=== PATIENT | male | born 1985 | race Caucasian/White ===

== ENCOUNTER → 2018-03-08 | Outpatient (CLI) | payer OTHER ==
[2018-03-07 20:16] VITALS: BP 151/105
[~2018-03-08] MED LIST: PREVACID15 M1
== END ==
LOC: RAD 07:23
DX: K76.0 Fatty (change of) liver, not elsewhere classified (principal); R10.11 Right upper quadrant pain; R74.8 Abnormal levels of other serum enzymes

== ENCOUNTER → 2018-03-15 | Outpatient (CLI) | payer OTHER ==
[2018-03-07 20:16] VITALS: BP 151/105
[2018-03-15 09:37] LABS: URINE APPEARANCE CLEAR; URINE BILIRUBIN NEGATIVE (NEGATIVE); URINE BLOOD 50 ery/uL (NEGATIVE); URINE COLOR YELLOW; URINE GLUCOSE NEGATIVE (NEGATIVE); URINE KETONE NEGATIVE (NEGATIVE); URINE LEUKOCYTE ESTERASE NEGATIVE (NEGATIVE); URINE MUCUS PRESENT (NOT PRESENT); URINE NITRATE NEGATIVE (NEGATIVE); URINE PROTEIN(semi-quant) 1+ mg/dL (NEGATIVE); URINE UROBILINOGEN NORMAL (NORMAL)
== END ==
LOC: LAB 09:29
PROVIDERS: Family Medicine
DX: K76.0 Fatty (change of) liver, not elsewhere classified (principal); R31.9 Hematuria, unspecified

== ENCOUNTER → 2019-04-06 | Outpatient (CLI) | payer OTHER ==
[2018-03-07 20:16] VITALS: BP 151/105
[2019-04-06 11:21] LABS: EOS # 0.2 (0.04-0.40); EOS % 3.4 % (0.0-4.0); HEMATOCRIT 47.8 % (42.0-52.0); HEMOGLOBIN 16.1 g/dL (13.5-18.0); LYMPH# 1.5 (1.50-4.00); MEAN CELL VOLUME 96 fl (78-100); MEAN CORPUSCULAR HEMOGLOBIN 32 pg (27-31); MEAN CORPUSCULAR HGB CONC 34 g/dL (33-37); MEAN PLATELET VOLUME 9.3 fl (7.4-10.4); MONO # 0.4 (0.20-0.80); NEU # 3.5 (1.40-6.50); PLATELET COUNT 272 K/mm3 (130-400); RED BLOOD COUNT 4.97 M/mm3 (4.20-5.60); RED CELL DISTRIBUTION WIDTH 12.8 % (11.5-14.5); WHITE BLOOD COUNT 5.6 K/mm3 (4.8-10.8)
[2019-04-06 11:30] LABS: ALBUMIN 4.7 g/dL (3.5-5.0); POTASSIUM 4.1 mmol/L (3.5-5.1)
[2019-04-06 11:31] LABS: CALCIUM 9.7 mg/dL (8.3-10.5)
[2019-04-06 11:33] LABS: TOTAL PROTEIN 7.8 g/dL (6.4-8.3)
[2019-04-06 11:34] LABS: TOTAL BILIRUBIN 0.4 mg/dL (0.2-1.2)
== END ==
LOC: LAB 11:09
PROVIDERS: Family Medicine
DX: Z00.00 Encounter for general adult medical examination without abnormal findings (principal); E78.5 Hyperlipidemia, unspecified

== ENCOUNTER 2019-05-01 13:18 | Emergency (ER) | payer OTHER ==
[2019-05-01] MEDS ORDERED: SERTRALINE HYDR25 MG PO (13:31)
[2019-05-01 13:59] LABS: HEMATOCRIT 47.3 % (42.0-52.0); HEMOGLOBIN 16.9 g/dL (13.5-18.0); MEAN CELL VOLUME 91 fl (78-100); MEAN CORPUSCULAR HEMOGLOBIN 32 pg (27-31); MEAN CORPUSCULAR HGB CONC 36 g/dL (33-37); MEAN PLATELET VOLUME 9.2 fl (7.4-10.4); PLATELET COUNT 205 K/mm3 (130-400); RED BLOOD COUNT 5.22 M/mm3 (4.20-5.60); RED CELL DISTRIBUTION WIDTH 12.2 % (11.5-14.5); WHITE BLOOD COUNT 12.1 K/mm3 (4.8-10.8)
[2019-05-01 14:06] LABS: ALBUMIN 3.8 g/dL (3.5-5.0); POTASSIUM 3.4 mmol/L (3.5-5.1)
[2019-05-01 14:07] LABS: URINE APPEARANCE HAZY; URINE BILIRUBIN NEGATIVE (NEGATIVE); URINE BLOOD 250 ery/uL (NEGATIVE); URINE COLOR BLOODY; URINE GLUCOSE NEGATIVE (NEGATIVE); URINE KETONE NEGATIVE (NEGATIVE); URINE LEUKOCYTE ESTERASE NEGATIVE (NEGATIVE); URINE NITRATE NEGATIVE (NEGATIVE); URINE PROTEIN(semi-quant) 2+ mg/dL (NEGATIVE); URINE UROBILINOGEN NORMAL (NORMAL); URINE WBC 0-1 /hpf (0-3)
[2019-05-01 14:07] LABS: CALCIUM 8.7 mg/dL (8.3-10.5)
[2019-05-01 14:08] LABS: TOTAL PROTEIN 7.6 g/dL (6.4-8.3)
[2019-05-01 14:10] LABS: TOTAL BILIRUBIN 1.5 mg/dL (0.2-1.2)
[2019-05-01 14:17] LABS: LYMPHOCYTE 9 % (20-51); MONOCYTE 4 % (3-10); NEUTROPHILS 87 % (42-75)
[2019-05-01 14:44] VITALS: BP 135/78
== END 2019-05-01 14:40 | disposition other institution (70) ==
LOC: ED 13:18
PROVIDERS: Nurse Practitioner Family
DX: K85.90 Acute pancreatitis without necrosis or infection, unspecified (principal); E87.1 Hypo-osmolality and hyponatremia
CPT/HCPCS: J1885; J2405; J7030

== ENCOUNTER 2019-05-01 14:31 | Inpatient (IN) | payer OTHER ==
[~2019-05-01] VITALS: Ht 180.3 cm; Wt 85.0 kg
[~2019-05-01 14:31] MED LIST changes: +SERTRALINE HYDR25 MG PO
[2019-05-01 14:44] VITALS: BP 135/87
[2019-05-01 17:19] VITALS: BP 116/77
[2019-05-01 18:20] VITALS: BP 116/77
--- NOTE | 2019-05-01 19:10 | NUR ---
Report received from Vanessa WASHINGTON. Resting supine in bed in a relaxed state. A/O x4. IVF infusing LR at 200 ML/HR. Site patent to LAC. No signs and Sx of withdrawl. States no pain at rest. 4/10 with movement. Denies need for analgesic. Assessment completed. and children in to visit.
[2019-05-01 20:00] VITALS: BP 132/80
--- NOTE | 2019-05-01 20:45 | NUR ---
Up to BR. Back to bed. No pain prior to going to BR. Has coughing spell. Pain level 7/10. Morphine 4 MG IV given at this time. Takes PO Zoloft with sip of H20. IV Protonix given.
[2019-05-01 22:00] VITALS: BP 129/80
[2019-05-02] VITALS (8 sets, daily range): BP systolic 117–142; BP diastolic 72–90
--- NOTE | 2019-05-02 00:38 | NUR ---
Calls for analgesic pain 09/15. Toradol 15 MG given at this time IV. Denies anxiousness, tremors. States he has gotten "a little bit of sleep".
--- NOTE | 2019-05-02 02:35 | NUR ---
New bag of IVF hung. LR at 200 ML/HR. Site patent to LAC. Resting quietly. Denies need for analgesic.
--- NOTE | 2019-05-02 04:04 | NUR ---
Resting well with eyes closed. No signs of pain or distress. IVF infusing LR at 200 ML/HR. V/S deferred at this time to allow patient to sleep. Have been stable Q 2 hours.
--- NOTE | 2019-05-02 04:53 | NUR ---
Rings call light. Asks for extra blanket. Up ad-el to void. Denies need for analgesic, no signs of withdrawl.
--- NOTE | 2019-05-02 07:18 | NUR ---
Report to Carol WASHINGTON.
[2019-05-02 07:41] LABS: HEMATOCRIT 40.6 % (42.0-52.0); MEAN CELL VOLUME 94 fl (78-100); MEAN CORPUSCULAR HEMOGLOBIN 32 pg (27-31); MEAN CORPUSCULAR HGB CONC 35 g/dL (33-37); MEAN PLATELET VOLUME 9.2 fl (7.4-10.4); PLATELET COUNT 150 K/mm3 (130-400); RED BLOOD COUNT 4.32 M/mm3 (4.20-5.60); RED CELL DISTRIBUTION WIDTH 12.8 % (11.5-14.5)
[2019-05-02 08:32] LABS: ALBUMIN 3.1 g/dL (3.5-5.0)
[2019-05-02 08:33] LABS: CALCIUM 8.8 mg/dL (8.3-10.5)
[2019-05-02 08:34] LABS: TOTAL PROTEIN 6.1 g/dL (6.4-8.3)
[2019-05-02 08:36] LABS: TOTAL BILIRUBIN 1.3 mg/dL (0.2-1.2)
[2019-05-02 08:41] LABS: LYMPHOCYTE 10 % (20-51); MONOCYTE 1 % (3-10); NEUTROPHILS 88 % (42-75)
[2019-05-02 08:42] LABS: LIPASE 191 U/L (8-78)
--- NOTE | 2019-05-02 13:02 | NUR ---
Elizabeth Barger APRN at bedside.
--- NOTE | 2019-05-02 19:00 | NUR ---
REPORT PROVIDED BY PADMINI AMATO.
--- NOTE | 2019-05-02 20:10 | NUR ---
PATIENT SITTING IN CHAIR. PAIN AT A 3/10 IN R ABD AND LOWER BACK BILATERALLY. REQUEST TORADOL FOR PAIN AND PROVIDED. PATIENT REPORTS 2 BM OF DIARRHEA TODAY. ABDOMEN FIRM BUT AUDIBLE IN ALL FOUR. PATIENT IS TACHYCARDIC BUT NO SWEATING AND NO TREMORS. LACTATED RINGER RUNNING AT 75MLS/HR.
[2019-05-03] VITALS (7 sets, daily range): BP systolic 127–150; BP diastolic 78–100
--- NOTE | 2019-05-03 02:00 | NUR ---
JUST UNDER 500ML OF LR REMAINING IN BAG. PATIENT ASLEEP. RR 16. LR BAG TO BE CHANGED CLOSER TO TIME OF COMPLETION OF REMAINING MLS. RATE OF INFUSION AT 75MLS/HR.
--- NOTE | 2019-05-03 07:00 | NUR ---
REPORT OFF TO PADMINI LANIER.
--- NOTE | 2019-05-03 07:25 | NUR ---
REPORT RECEIVED FROM CARMINA WASHINGTON.
[2019-05-03 07:33] LABS: EOS # 0.2 (0.04-0.40); EOS % 3.4 % (0.0-4.0); HEMATOCRIT 40.8 % (42.0-52.0); HEMOGLOBIN 13.4 g/dL (13.5-18.0); LYMPH# 0.9 (1.50-4.00); MEAN CELL VOLUME 97 fl (78-100); MEAN CORPUSCULAR HEMOGLOBIN 32 pg (27-31); MEAN CORPUSCULAR HGB CONC 33 g/dL (33-37); MEAN PLATELET VOLUME 9.4 fl (7.4-10.4); MONO # 0.6 (0.20-0.80); NEU # 4.2 (1.40-6.50); PLATELET COUNT 164 K/mm3 (130-400); RED BLOOD COUNT 4.22 M/mm3 (4.20-5.60); RED CELL DISTRIBUTION WIDTH 13.3 % (11.5-14.5); WHITE BLOOD COUNT 5.9 K/mm3 (4.8-10.8)
[2019-05-03 07:44] LABS: ALBUMIN 3.3 g/dL (3.5-5.0)
[2019-05-03 07:45] LABS: POTASSIUM 3.8 mmol/L (3.5-5.1)
[2019-05-03 07:46] LABS: CALCIUM 9.3 mg/dL (8.3-10.5)
[2019-05-03 07:47] LABS: TOTAL PROTEIN 6.7 g/dL (6.4-8.3)
[2019-05-03 07:49] LABS: TOTAL BILIRUBIN 1.2 mg/dL (0.2-1.2)
--- NOTE | 2019-05-03 07:50 | NUR ---
RESTING IN BED ON LT SIDE. AWAKENS EASILY. LR INFUSING PER ORDERS TO INTACT LT AC SITE. RATES PAIN 1/10 TO RUQ AND MIDLINE ABD, JUST BELOW UMBILICUS. TENDERNESS TO RUQ. ABD DISTENDED. BOWEL SOUNDS PRESENT X4 QUADS. PAIN IS BETTER IF HE FINDS THE RIGHT POSITION. DENIES NAUSEA. EXPERIENCES A "BUBBLING" SENSATION TO ABD AFTER PO INTAKE. DISCUSS POSSIBILITY OF ADVANCING DIET TODAY, WHICH PATIENT WOULD APPRECIATE. NO TREMOR NOTED DURING ASSESSMENT.
--- NOTE | 2019-05-03 09:00 | NUR ---
OFFER PRN TORADOL FOR PAIN CONTROL. PATIENT MAINTAINS PAIN IS TOLERABLE. HE WOULD LIKE TO SEE HOW HE FAIRS WITHOUT PAIN MEDICATION. DISCUSS BRAT DIET WITH PATIENT. ENCOURAGE HIM TO USE CALL LIGHT IF HE NEEDS PAIN MEDICATION OR A SNACK BEFORE LUNCH.
--- NOTE | 2019-05-03 11:18 | NUR ---
IV FLUIDS PAUSED AT THIS TIME SO PATIENT CAN SHOWER.
--- NOTE | 2019-05-03 11:58 | NUR ---
SITTING IN CHAIR EATING LUNCH. IV FLUIDS RECONNECTED. SHOWERED. PAIN STILL CONTROLLED. RATES 1/10 WITH INCREASED PAIN DURING MOVEMENT. HE GIVES THE EXAMPLE OF BENDING OVER IN SHOWER CAUSED INCREASED ABD PAIN.
--- NOTE | 2019-05-03 19:00 | NUR ---
Report provided by PADMINI Cook.
--- NOTE | 2019-05-03 19:20 | NUR ---
REPORT PROVIDED TO CARMINA WASHINGTON.
--- NOTE | 2019-05-03 19:50 | NUR ---
Patient reports little pain at a 2-3/10 in R side abd. LR running at 75ml/hr. IV patent and in L ac. No pain, redness or phlebitis. Discussion with patient about pancreatitis. Educational material printed and provided to patient. Discussed alcohol and advised patient that support resources are available. Patient stated he feels very supported at home but before this he just did not want to quit. Now he does. He wants to be home with his children and and not drink he said. He refused opportunities of support from [employer], social work, but said he will keep it in mind.
--- NOTE | 2019-05-03 21:30 | NUR ---
Patient ambulated >150 feet.
[2019-05-04 01:42] VITALS: BP 133/92
[2019-05-04 05:45] VITALS: BP 150/102
--- NOTE | 2019-05-04 09:31 | NUR ---
PT STATES THAT HE TOLERATED BREAKFAST WELL WITH NO NAUSEA OF ABDOMINAL PAIN. PT STATES THAT HE FEELS WELL AND HAS NO C/O PAIN.
[2019-05-04 10:16] VITALS: BP 143/90
[2019-05-04 14:17] VITALS: BP 136/91
[2019-05-04] MEDS ORDERED: NICOTINE7 MG/24 HR TD (15:16)
[2019-05-04] MEDS ORDERED: ADVIL 200MG TA200 MG PO (15:16)
[2019-05-04 15:42] VITALS: BP 152/98
--- NOTE | 2019-05-04 15:43 | NUR ---
ALL DC PAPERWORK REVIEWED AND UNDERSTOOD, DISCUSSED IMPORTANCE OF SMOKING AND ALCOHOL CESSATION, PT AGREES, IV REMOVED FROM LEFT AC, VITAL SIGNS STABLE AT THIS TIME, PT IN STABLE CONDITION, ALL BELONGINGS PACKED UP AND SENT HOME, PROVIDING TRANSPORTATION HOME
== END 2019-05-04 15:51 | disposition home or self-care (01) | DRG 439 ==
LOC: MED/SURG 14:31
PROVIDERS: ADMIT Nurse Practitioner Family
DX: K85.90 Acute pancreatitis without necrosis or infection, unspecified (principal); E87.1 Hypo-osmolality and hyponatremia; R31.9 Hematuria, unspecified; F17.210 Nicotine dependence, cigarettes, uncomplicated; Z72.89 Other problems related to lifestyle
CPT/HCPCS: C9113; J1885; J2270; J7120

== ENCOUNTER → 2019-07-04 | Outpatient (CLI) | payer OTHER ==
[~2019-07-04] MED LIST changes: +ADVIL 200MG TA200 MG PO; +NICOTINE7 MG/24 HR TD
== END ==
LOC: RAD 10:58
DX: M25.561 Pain in right knee (principal); M25.562 Pain in left knee

== ENCOUNTER 2019-10-24 10:23 | Emergency (ER) | payer OTHER ==
[2019-10-24 11:49] LABS: EOS # 0.1 (0.04-0.40); EOS % 1.5 % (0.0-4.0); HEMATOCRIT 47.6 % (42.0-52.0); HEMOGLOBIN 16.8 g/dL (13.5-18.0); MEAN CELL VOLUME 93 fl (78-100); MEAN CORPUSCULAR HEMOGLOBIN 33 pg (27-31); MEAN CORPUSCULAR HGB CONC 35 g/dL (33-37); MEAN PLATELET VOLUME 9.3 fl (7.4-10.4); MONO # 0.4 (0.20-0.80); NEU # 3.1 (1.40-6.50); PLATELET COUNT 225 K/mm3 (130-400); RED BLOOD COUNT 5.14 M/mm3 (4.20-5.60); RED CELL DISTRIBUTION WIDTH 12.4 % (11.5-14.5); WHITE BLOOD COUNT 4.6 K/mm3 (4.8-10.8)
[2019-10-24 11:56] LABS: ALBUMIN 4.5 g/dL (3.5-5.0)
[2019-10-24 11:57] LABS: POTASSIUM 3.5 mmol/L (3.5-5.1); SODIUM 134 mmol/L (136-145)
[2019-10-24 11:58] LABS: CALCIUM 9.1 mg/dL (8.3-10.5)
[2019-10-24 11:59] LABS: GLUCOSE 111 mg/dL (75-110); TOTAL PROTEIN 8.2 g/dL (6.4-8.3)
[2019-10-24 12:01] LABS: TOTAL BILIRUBIN 0.8 mg/dL (0.2-1.2)
[2019-10-24 12:04] LABS: AST-SGOT 93 U/L (5-34)
[2019-10-24 12:05] LABS: ALT/SGPT 86 U/L (0-55)
[2019-10-24 12:13] LABS: CARBON DIOXIDE 6 mmol/L (22-29)
[2019-10-24 12:14] LABS: TROPONIN-I < 0.03 ng/mL (<0.030)
[2019-10-24 12:24] LABS: D-DIMER 0.11 mg/L FEU (0.15-0.50)
[2019-10-24] MEDS ORDERED: NATURE'S BLEND100 M2 PO (14:07)
[2019-10-24] MEDS ORDERED: PHARMASSURE FO0.4 MG PO (14:07)
[2019-10-24 14:11] VITALS: BP 155/102
== END 2019-10-24 14:19 | disposition home or self-care (01) ==
LOC: ED 10:23
PROVIDERS: Physician Assistant
DX: F41.9 Anxiety disorder, unspecified (principal); F10.20 Alcohol dependence, uncomplicated; R07.89 Other chest pain; F17.210 Nicotine dependence, cigarettes, uncomplicated; Z79.1 Long term (current) use of non-steroidal anti-inflammatories (NSAID); Z20.828 Contact with and (suspected) exposure to other viral communicable diseases

== ENCOUNTER → 2020-12-15 | Outpatient (CLI) | payer OTHER ==
[~2020-12-15] MED LIST changes: +NATURE'S BLEND100 M2 PO; +PHARMASSURE FO0.4 MG PO
[2020-12-15 14:37] LABS: BASO # 0.03 (0.02-0.10); EOS # 0.16 (0.04-0.40); EOS % 3.1 % (0.0-4.0); HEMATOCRIT 48.5 % (42.0-52.0); HEMOGLOBIN 15.6 g/dL (13.5-18.0); LYMPH# 1.76 (1.50-4.00); MEAN CELL VOLUME 88 fl (78-100); MEAN CORPUSCULAR HEMOGLOBIN 28 pg (27-31); MEAN CORPUSCULAR HGB CONC 32 g/dL (33-37); MEAN PLATELET VOLUME 9.1 fl (7.4-10.4); MONO # 0.35 (0.20-0.80); NEU # 2.86 (1.40-6.50); PLATELET COUNT 315 K/mm3 (130-400); RED BLOOD COUNT 5.49 M/mm3 (4.20-5.60); RED CELL DISTRIBUTION WIDTH 14.4 % (11.5-14.5); WHITE BLOOD COUNT 5.2 K/mm3 (4.8-10.8)
[2020-12-15 14:49] LABS: POTASSIUM 4.5 mmol/L (3.5-5.1)
[2020-12-15 14:50] LABS: ALBUMIN 4.6 g/dL (3.5-5.0)
[2020-12-15 14:51] LABS: CALCIUM 10.1 mg/dL (8.3-10.5)
[2020-12-15 14:52] LABS: TOTAL PROTEIN 8.3 g/dL (6.4-8.3)
[2020-12-15 14:54] LABS: TOTAL BILIRUBIN 0.2 mg/dL (0.2-1.2)
== END ==
LOC: LAB 14:10
PROVIDERS: Family Medicine
DX: Z00.00 Encounter for general adult medical examination without abnormal findings (principal); M10.032 Idiopathic gout, left wrist; E78.5 Hyperlipidemia, unspecified